=== PATIENT | female | born 1995 | race African-American/Black ===

== ENCOUNTER 2022-08-03 12:52 | Inpatient (IN) | payer OTHER ==
[2022-08-03 15:40] VITALS: BMI 48.3
[2022-08-03] MEDS ORDERED: ACETAMINOPHEN 325 MG TABLET (FP) PO PRN ×2 (15:56)
[2022-08-03] MEDS ORDERED: BENZOCAINE/MENTHOL (CHLORASEPTIC ) LOZENGE MM PRN (15:56)
[2022-08-03] MEDS ORDERED: MAGNESIUM HYDROX 2400MG/30ML ORAL SUSPENSION 30 ML CUP PO PRN (15:56)
[2022-08-03] MEDS ORDERED: ONDANSETRON *ODT* 4 MG TABLET SL PRN (15:56)
[2022-08-03] MEDS ORDERED: IBUPROFEN 600 MG TABLET (FP) PO PRN (15:56)
[2022-08-03] MEDS ORDERED: NALOXONE HCL (KLOXXADO) 8 MG SPRAY NS PRN (15:56)
[2022-08-03] MEDS ORDERED: IBUPROFEN 400 MG TABLET (FP) PO PRN (15:56)
[2022-08-03] MEDS ORDERED: MAGNESIUM CITRATE 300 ML BOTTLE PO PRN (15:56)
[2022-08-03] MEDS ORDERED: BISMUTH SUBSALICYLATE 524 MG/30 ML PO PRN (15:56)
[2022-08-03] MEDS ORDERED: DICYCLOMINE HCL 10 MG CAPSULE PO PRN (15:56)
[2022-08-03] MEDS ORDERED: chlordiazePOXIDE HCL 25 MG CAPSULE PO PRN (15:56)
[2022-08-03] MEDS ORDERED: MAG HYDROX/AL HYDROX/SIMETH 30 ML UNIT-DOSE CUP PO PRN (15:56)
[2022-08-03] MEDS ORDERED: LOPERAMIDE HCL 2 MG CAPSULE PO PRN (15:56)
[2022-08-03] MEDS: chlordiazePOXIDE HCL 25 MG CAPSULE PO SCH ×2 (18:04→22:35)
[2022-08-03] MEDS: METHOCARBAMOL 500 MG TABLET PO PRN (18:05)
[2022-08-03] MEDS: hydrOXYzine PAMOATE 25 MG CAPSULE (FP) PO SCH ×2 (18:06→22:35)
[2022-08-03] MEDS: NICOTINE 21 MG/24 HOURS TOPICAL PATCH TD SCH (18:06)
[2022-08-03] MEDS ORDERED: cloNIDine HCL 0.1 MG TABLET PO ONE (18:24)
[2022-08-03] MEDS: MELATONIN 5 MG TABLETS PO SCH (22:35)
[2022-08-03] MEDS: THIAMINE HCL 100 MG TABLET (FP) PO SCH (22:35)
[2022-08-04] MEDS: chlordiazePOXIDE HCL 25 MG CAPSULE PO SCH ×4 (06:44→22:22)
[2022-08-04] MEDS: hydrOXYzine PAMOATE 25 MG CAPSULE (FP) PO SCH ×5 (06:45→22:27)
[2022-08-04] MEDS: PRENATAL VITAMINS W/ FOLIC ACID TABLET (FP) PO SCH (11:11)
[2022-08-04] MEDS: NICOTINE 21 MG/24 HOURS TOPICAL PATCH TD SCH (11:11)
[2022-08-04] MEDS: LISINOPRIL 10 MG TABLET PO SCH ×2 (12:13→22:22)
[2022-08-04 13:47] LABS: HEMATOCRIT 37.1 % (32.4-45.2); HEMOGLOBIN 12.2 GM/dL (10.7-15.3); MCH 31.6 pg (25.7-33.7); MCHC 32.9 g/dl (32.0-36.0); MEAN PLT VOLUME 8.3 fl (7.5-11.1); PLATELET COUNT 282 10^3/uL (134-434); RBC 3.86 M/mm3 (3.60-5.2); RDW 15.3 % (11.6-15.6); WHITE BLOOD COUNT 7.5 K/mm3 (4.0-10.0)
[2022-08-04 13:58] LABS: CALCIUM 8.7 mg/dL (8.5-10.1)
[2022-08-04 14:00] LABS: ALBUMIN 2.9 g/dl (3.4-5.0); BLOOD UREA NITROGEN 10.1 mg/dL (7-18)
[2022-08-04 14:03] LABS: CREATININE 0.9 mg/dL (0.55-1.3)
[2022-08-04 14:04] LABS: BILIRUBIN,TOTAL 0.5 mg/dL (0.2-1)
[2022-08-04 14:07] LABS: TOT PROT 6.6 g/dl (6.4-8.2)
[2022-08-04] MEDS: cloNIDine HCL 0.1 MG TABLET PO PRN (15:16)
[2022-08-04] MEDS: THIAMINE HCL 100 MG TABLET (FP) PO SCH (22:22)
[2022-08-04] MEDS: MELATONIN 5 MG TABLETS PO SCH (22:22)
[2022-08-05] MEDS: hydrOXYzine PAMOATE 25 MG CAPSULE (FP) PO SCH ×5 (05:36→22:20)
[2022-08-05] MEDS: chlordiazePOXIDE HCL 25 MG CAPSULE PO SCH ×4 (05:36→22:19)
[2022-08-05] MEDS: PRENATAL VITAMINS W/ FOLIC ACID TABLET (FP) PO SCH (10:18)
[2022-08-05] MEDS: LISINOPRIL 10 MG TABLET PO SCH ×2 (10:18→22:19)
[2022-08-05] MEDS: METHOCARBAMOL 500 MG TABLET PO PRN ×2 (10:19→17:56)
[2022-08-05] MEDS: NICOTINE 21 MG/24 HOURS TOPICAL PATCH TD SCH (10:19)
[2022-08-05] MEDS: cloNIDine HCL 0.1 MG TABLET PO PRN (10:19)
[2022-08-05] MEDS: NICOTINE 10 MG CARTRIDGE (INHALER) IH PRN (10:22)
[2022-08-05] MEDS ORDERED: LISINOPRIL 20 MG TABLET PO ONE (22:00)
[2022-08-05] MEDS: THIAMINE HCL 100 MG TABLET (FP) PO SCH (22:19)
[2022-08-05] MEDS: MELATONIN 5 MG TABLETS PO SCH (22:19)
[2022-08-06] MEDS ORDERED: chlordiazePOXIDE HCL 10 MG CAPSULE PO PRN
[2022-08-06] MEDS: hydrOXYzine PAMOATE 25 MG CAPSULE (FP) PO SCH (05:33)
[2022-08-06] MEDS: chlordiazePOXIDE HCL 10 MG CAPSULE PO SCH ×3 (05:33→17:36)
[2022-08-06 09:12] VITALS: RESP 18
[2022-08-06] MEDS ORDERED: hydrOXYzine PAMOATE 25 MG CAPSULE (FP) PO PRN (09:50)
[2022-08-06] MEDS ORDERED: LISINOPRIL 10 MG TABLET PO SCH (10:00)
[2022-08-06] MEDS: METHOCARBAMOL 500 MG TABLET PO PRN (10:30)
[2022-08-06] MEDS: NICOTINE 21 MG/24 HOURS TOPICAL PATCH TD SCH (10:31)
[2022-08-06] MEDS: PRENATAL VITAMINS W/ FOLIC ACID TABLET (FP) PO SCH (10:31)
[2022-08-06 12:47] VITALS: PULSE 104
[2022-08-06] MEDS: NICOTINE 10 MG CARTRIDGE (INHALER) IH PRN (12:50)
[2022-08-06] MEDS: cloNIDine HCL 0.1 MG TABLET PO PRN (17:36)
[2022-08-06 19:39] VITALS: BP 141/98; TEMP 98
[2022-08-07] MEDS ORDERED: chlordiazePOXIDE HCL 10 MG CAPSULE PO SCH (05:00)
[2022-08-08] MEDS ORDERED: chlordiazePOXIDE HCL 10 MG CAPSULE PO ONE (05:00)
== END 2022-08-06 19:50 | disposition left against medical advice (07) | DRG 770 ==
LOC: YASAS 12:52 → Y6N 16:58
PROVIDERS: ADMIT Allergy & Immunology; ATTEND Surgery
PROC: HZ2ZZZZ Detoxification Services for Substance Abuse Treatment (ICD-10-PCS; principal; 2022-08-03)
DX: F10.230 Alcohol dependence with withdrawal, uncomplicated (principal); F12.20 Cannabis dependence, uncomplicated; F17.210 Nicotine dependence, cigarettes, uncomplicated; F19.280 Other psychoactive substance dependence with psychoactive substance-induced anxiety disorder; F19.282 Other psychoactive substance dependence with psychoactive substance-induced sleep disorder; F31.9 Bipolar disorder, unspecified; F43.10 Post-traumatic stress disorder, unspecified; I10 Essential (primary) hypertension; L73.2 Hidradenitis suppurativa; E66.9 Obesity, unspecified; Z68.42 Body mass index [BMI] 45.0-49.9, adult
CPT/HCPCS: 36415; 80053; 81025; 85027; 86780; 93005; 93010; C9803-CS; U0003; U0005